=== PATIENT | male | born 1995 ===

== ENCOUNTER 2017-12-13 19:19 | Emergency (ER) | payer BC ==
[~2017-12-13] VITALS: Ht 170.2 cm; Wt 66.8 kg
[2017-12-13 19:37] VITALS: BP 131/74
[2017-12-13] MEDS ORDERED: DOCU-28 PO (22:22)
[2017-12-13] MEDS ORDERED: POLY17PO10 PO (22:22)
== END 2017-12-13 22:53 | disposition home or self-care (01) ==
LOC: ER 19:21
DX: K59.00 Constipation, unspecified (principal)
CPT/HCPCS: 99282